=== PATIENT | male | born 2000 | race African-American/Black ===

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

== ENCOUNTER 2021-12-30 00:36 | Emergency (ER) | payer SELFPAY ==
[2021-12-30 00:56] VITALS: RESP 22; BMI 39.1
[2021-12-30] MEDS ORDERED: ALBUTEROL SO4 2.5/IPRATROPIUM 0.5 INH SOL 3 ML VIAL.NEB. NEB ONE (01:16)
[2021-12-30] MEDS: ALBUTEROL SO4 2.5/IPRATROPIUM 0.5 INH SOL 3 ML VIAL.NEB. NEB SCH ×4 (02:15→04:00)
[2021-12-30] MEDS ORDERED: IBUPROFEN 800 MG/8 ML IJ IVPB ONE (02:19)
[2021-12-30 02:52] VITALS: BP 148/70; PULSE 107; TEMP 99.5
[2021-12-30] MEDS ORDERED: MAGNESIUM SULF 50% (8.12 MEQ/2 ML-1 GM VIAL) IVPB ONE (02:58)
[2021-12-30] MEDS ORDERED: MAGNESIUM SULFATE IN WATER 2 GM/50 ML IVPB IVPB ONE (03:19)
[2021-12-30 03:45] LABS: HEMATOCRIT 43.4 % (35.4-49); HEMOGLOBIN 14.7 GM/dL (11.7-16.9); MCH 29.3 pg (25.7-33.7); MCHC 33.9 g/dl (32.0-35.9); MEAN CELL VOLUME 86.6 fl (80-96); MEAN PLT VOLUME 8.5 fl (7.5-11.1); PLATELET COUNT 202 10^3/uL (134-434); RBC 5.01 M/mm3 (4.00-5.60); RDW 13.3 % (11.9-15.9)
[2021-12-30 04:05] LABS: CALCIUM 9.2 mg/dL (8.5-10.1)
[2021-12-30 04:06] LABS: ALBUMIN 4.6 g/dl (3.4-5.0); BLOOD UREA NITROGEN 7.7 mg/dL (7-18)
[2021-12-30 04:10] LABS: BILIRUBIN,TOTAL 1.3 mg/dL (0.2-1); TOT PROT 7.8 g/dl (6.4-8.2)
[2021-12-30 04:34] LABS: ANISOCYTOSIS 1+; MACROCYTOSIS 1+; OVALOCYTE 1+
[2021-12-30] MEDS ORDERED: ALBUTEROL SO4 HFA INHALER IH ONE ×2 (04:48→04:54)
== END 2021-12-30 04:59 | disposition home or self-care (01) ==
LOC: JER 00:36
PROC: 3E0F7GC Introduction of Other Therapeutic Substance into Respiratory Tract, Via Natural or Artificial Opening (ICD-10-PCS; principal; 2021-12-30)
PROC: 3E033GC Introduction of Other Therapeutic Substance into Peripheral Vein, Percutaneous Approach (ICD-10-PCS; 2021-12-30)
DX: J45.909 Unspecified asthma, uncomplicated (principal)
CPT/HCPCS: 0241U-QW; 36415; 71045-TC-FY; 80053; 85025; 93005; 93010; 99285-25